=== PATIENT | male | born 1960 | race Caucasian/White ===

== ENCOUNTER 2022-11-23 13:29 | Emergency (ER) | payer OTHER, SELFPAY ==
--- NOTE | ~2022-11-23 | CT_ITS ---
EXAMINATION: CT abdomen pelvis wo con DATE: 11/23/2022 16:32 INDICATION: Left flank pain. Hematuria. TECHNIQUE: Computed tomography (CT) of the abdomen and pelvis was performed without intravenous contr ast. Automated exposure control and iterative reconstruction technique were employed. The dose-length product was 412.04 mGy-cm. COMPARISON: None. FINDINGS: The visualized portions of the lung bases demonstrate mild atelectasis. No pleural effusion . The heart size is normal. No pericardial effusion. The liver and spleen are normal. The gallbladder is distended, likely secondary to fasting. The pancreas and adrenal glands are normal. There are 9 s tones in right kidney measuring up to 5 mm. There are 10 stones in left kidney measuring up to 5 mm. There is mild left hydronephrosis and hydroureter. There is a 5 mm stone in distal left ureter. The p rostate is mildly enlarged. There are bilateral inguinal hernias containing fat. There is diverticulo sis of the colon without evidence of diverticulitis. There are no dilated loops of bowel. The appendi x is normal. There are no pathologically enlarged lymph nodes. There is no free intraperitoneal fluid . There is severe lower lumbar spondylosis. There are hemangiomas in L2, T12, and T7 vertebral bodies . IMPRESSION: 1. 5 mm stone in distal left ureter with mild left hydronephrosis and hydroureter. 2. Bilateral nonobstructing kidney stones. Reviewed, dictated and finalized at location L. IMPRESSION: 1. 5 mm stone in distal left ureter with mild left hydronephrosis and hydrouret er. 2. Bilateral nonobstructing kidney stones.
[2022-11-23 14:05] VITALS: BP 148/85; PULSE 60; RESP 16; TEMP 36.7; O2SAT 100
[2022-11-23 15:14] LABS: Basophils Percent Auto 0.4 % (0.2-1.2); Eosinophils Absolute Auto 0.2 K/mm3 (0-0.3); Eosinophils Percent Auto 2.4 % (0-4.4); Hematocrit 39.7 % (42.0-52.0); Hemoglobin 13.4 g/dL (14.0-18.0); Immature Granulocyte Absolute 0.04 K/mm3 (0.00-0.031); Immature Granulocyte Percent A 0.4 % (0-0.5); Lymphocytes Percent Auto 10.1 % (18.3-44.2); Mean Corpuscular HGB Conc 33.8 g/dl (32-36); Mean Corpuscular Hemoglobin 32.7 pg (26-34); Mean Corpuscular Volume 96.8 fl (80-100); Mean Platelet Volume 9.9 fl (7.4-10.4); Monocytes Absolute Auto 0.9 K/mm3 (0.1-0.6); Monocytes Percent Auto 9.6 % (2.6-8.5); Neutrophils Absolute Auto 6.9 K/mm3 (1.3-6.7); Neutrophils Percent Auto 77.1 % (45.5-73.1); Platelet Count Result 193 k/mm3 (150-375); Red Cell Distribution Width 13.2 % (11.5-14.5); White Blood Count 8.9 K/mm3 (4.5-10.0)
[2022-11-23 15:27] LABS: Appearance Urine Clear (Clear); Bacteria Urine None Seen /hpf; Bilirubin Urine Negative (Negative); Blood Urine 2+ (Negative); Color Urine Yellow (Yellow); Glucose Urine UA Negative (Negative); Ketones Urine Negative (Negative); Leukocyte Esterase Ur Negative LEU/UL (Negative); Nitrate Urine Negative (Negative); Non Pathogenic Casts 0-2; Protein Urine Negative (Negative); RBC Urine 0-2 /hpf (0-2); Specific Grav Ur 1.007 (1.001-1.035); Squamous Epithelial Cell Urine None seen /hpf (Few); Urobilinogen Urine 0.2 mg/dL (<2.0); WBC Urine 0-5 /hpf; pH Urine 5.5 (5.0-9.0)
[2022-11-23 15:28] LABS: Alanine Aminotransferase 33 U/L (6-50); Albumin Level 4.3 g/dL (3.5-5.1); Alkaline Phosphatase 58 U/L (38-126); Anion Gap 7 mmol/L (8-16); Aspartate Amino Transferase 34 U/L (17-59); Bilirubin,Total 1.4 mg/dL (0.2-1.3); Blood Urea Nitrogen 17 mg/dL (9-20); Calcium 8.5 mg/dL (8.4-10.2); Carbon Dioxide 27 mmol/L (22-30); Chloride 103 mmol/L (98-107); Estimated CRCL calculation 63 ml/min; Estimated Glomerular Filt Rate > 60; Glucose 91 mg/dL (65-110); Lipase 77 U/L (23-300); Potassium 3.7 mmol/L (3.4-5.0); Sodium 137 mmol/L (137-145)
[2022-11-23 15:35] LABS: Add Urine Microscopic? YES
[2022-11-23] MEDS: ONDANSETRON INJ 4 MG/2 ML VIAL IV PUSH (16:26)
[2022-11-23] MEDS: HYDROmorphone HCL INJ (*CRX) 1 MG/ML SYR IV PUSH (16:26)
--- NOTE | 2022-11-23 16:27 | ED.GENADULT ---
HPI - General Adult General Chief complaint: Abdominal Pain Stated complaint: left flank pain Time Seen by Provider: 11/23/22 15:42 History of Present Illness HPI narrative: 62-year-old male presented the emergency department for evaluation of left flank pain. Patient does have a history of ureteral calculi. Patient states that approximately 5 years ago he did have to have a stent placed by Dr. Hernandez. Patient has passed a stone since then. Patient began having pain on Tuesday, around 10 to 11 AM. Patient reports that the pain did come back this morning at approximately 8 AM. Patient did have some nausea without vomiting. Patient has not noticed any blood in his urine. Patient has been increasing his water intake. Related Data Home Medications Medication Instructions Recorded Confirmed azathioprine 100 mg tablet 75 mg PO DAILY 04/12/22 04/12/22 tamsulosin 0.4 mg capsule 0.4 mg PO DAILY 04/12/22 04/12/22 Allergies Allergy/AdvReac Type Severity Reaction Status Date / Time No Known Allergies Allergy Verified 11/23/22 15:38 Review of Systems Review of Systems: All systems reviewed & are unremarkable except as noted in HPI and below PMFSH Past Medical History Medical History (Updated 11/23/22 @ 17:51 by Mihir Coley MD) Nephrolithiasis (2016) Surgical History Surgical History (Updated 04/08/22 @ 12:59 by Nallely Loyola) S/P rotator cuff repair Social History Social History Smoking status: Never smoker Exam Narrative: APPEARANCE: Well appearing, no pain, no distress, well-nourished. HEAD: normocephalic, atraumatic. EYES: PERRLA/EOMI, conjunctivae clear. NOSE: Normal no drainage NECK: Supple. No adenopathy, no masses. RESPIRATORY: Airway patent, respirations nonlabored. Clear to auscultation bilaterally, no rales, rhonchi, wheezing. CARDIOVASCULAR: Regular rate and rhythm without murmurs rubs or gallops. ABDOMINAL: Some left CVA tenderness to palpation MUSCULOSKELETAL: Moves all extremities. Strength/ROM intact, No edema, No calf tenderness. NEURO: Alert. Cranial nerves II through XII intact. Grossly intact SKIN: Warm, dry. Normal Color Course Course Emergency Course: External male presented to ED for evaluation of left flank pain. Patient did request medication for pain control and patient was treated with IV Dilaudid and medications for nausea control. CT scan to evaluate for ureteral calculi and was also ordered. Patient was updated on the plan for imaging. All questions concerns were addressed. Patient did feel improved with treatment. Patient is afebrile with no leukocytosis. Patient UA showed hematuria but no evidence of infection. CT scan did show a 5 mm stone in the distal left ureter. Patient was updated on the results of the work-up. Patient will be given follow-up with Dr. Hernandez. Patient was started on Flomax in the emergency department. Patient will be provided medications for nausea and for pain control. Vital Signs Vital signs: Vital Signs Temperature 98.1 F 11/23/22 14:05 Pulse Rate 60 11/23/22 14:05 Respiratory Rate 16 11/23/22 14:05 Blood Pressure 148/85 H 11/23/22 14:05 Pulse Oximetry 100 11/23/22 14:05 Oxygen Delivery Room Air 11/23/22 14:05 Temperature 98.1 F 11/23/22 14:05 Pulse Rate 60 11/23/22 14:05 Respiratory Rate 16 11/23/22 14:05 Blood Pressure 148/85 H 11/23/22 14:05 Pulse Oximetry 100 11/23/22 14:05 Oxygen Delivery Room Air 11/23/22 14:05 Medical Decision Making Differential Diagnosis Differential Diagnosis: Ureteral calculi, musculoskeletal injury, urinary tract infection, colitis, diverticulitis Vital Signs Vital Signs: Vital Signs Temperature 98.1 F 11/23/22 14:05 Pulse Rate 60 11/23/22 14:05 Respiratory Rate 16 11/23/22 14:05 Blood Pressure 148/85 H 11/23/22 14:05 Pulse Oximetry 100 11/23/22 14:05 Oxygen Delivery Room Air 11/23/22 14:05 Temperature 98.1 F
== END 2022-11-23 18:10 | disposition home or self-care (01) ==
PROVIDERS: Emergency Provider Emergency Medicine; PCP Family Medicine Adolescent Medicine
DX: N13.2 Hydronephrosis with renal and ureteral calculous obstruction (principal); Z87.442 Personal history of urinary calculi
CPT/HCPCS: 36415; 74176; 80053; 81001; 83690; 85025; 96374; 96375; 99284; J1170; J2405

== ENCOUNTER 2024-06-04 11:33 | Outpatient (CLI) | payer OTHER, SELFPAY ==
--- NOTE | ~2024-06-04 | CT_ITS ---
EXAMINATION: CT abdomen pelvis w con DATE: 06/04/2024 12:09 INDICATION: Right lower quadrant abdominal pain TECHNIQUE: Computed tomography (CT) of the abdomen and pelvis was performed with 100 mL Omnipaque-350 intravenous contrast. Automated exposure control and iterative reconstruction technique were employe d. The dose-length product was 500.99 mGy-cm. COMPARISON: None FINDINGS: Lung bases are clear. Heart size is normal. No pericardial or pleural effusion. Small sliding-type hi atal hernia. Liver, gallbladder, spleen, pancreas, bilateral adrenal glands and kidneys are normal. T he fluid-filled appendix is dilated to 1.6 cm with prominent surrounding inflammatory stranding consi stent with acute appendicitis. Small high attenuation gallstones are seen within the dilated portion of the appendix. There is prominent likely secondary reactive wall thickening at the ileocecal valve. Small amount of fluid at the inferior aspect of the bilateral paracolic gutters, unclear whether int raperitoneal or more likely retroperitoneal no free fluid seen deep in the pelvis. No abscess or free intraperitoneal gas. Remainder of the bowels are unremarkable with no obstruction. Bladder is normal . Prostatomegaly. Small bilateral fat-containing inguinal hernias. IMPRESSION: 1. Acute appendicitis. Dr. Avitia discussed these findings with Dr. Muñoz at 12:15 PM. Reviewed, dictated and finalized at location A. STONE POLISHER IMPRESSION: 1. Acute appendicitis. Dr. Avitia discussed these findings with Dr. Muñoz at 12 :15 PM.
[2024-06-04 12:03] LABS: Estimated Glomerular Filt Rate > 60
== END 2024-06-04 11:34 | disposition home or self-care (01) ==
PROVIDERS: PCP Family Medicine Adolescent Medicine; Visit Provider Family Medicine
DX: K35.80 Unspecified acute appendicitis (principal)
CPT/HCPCS: 74177; Q9967

== ENCOUNTER 2024-06-04 12:32 | Observation (INO) | payer OTHER, SELFPAY ==
[2024-06-04] VITALS (12 sets, daily range): BP systolic 121–159; BP diastolic 42–84; PULSE 71–94; RESP 12–18; TEMP 36.3–37.4; O2SAT 93–100
[2024-06-04] MEDS: metroNIDAZOLE 500 MG/ISO 100ML 500 MG/100 ML BAG 100 MG IVPB ×2 (13:00→22:08)
[2024-06-04] MEDS: MORPHINE SULFATE (*CRX) 4 MG/ML INJ IV PUSH (13:00)
[2024-06-04 13:22] LABS: Basophils Percent Auto 0.2 % (0.2-1.2); Eosinophils Absolute Auto 0.1 K/mm3 (0-0.3); Eosinophils Percent Auto 1.2 % (0-4.4); Hematocrit 39.6 % (42.0-52.0); Hemoglobin 13.3 g/dL (14.0-18.0); Immature Granulocyte Absolute 0.03 K/mm3 (0.00-0.031); Immature Granulocyte Percent A 0.3 % (0-0.5); Lymphocytes Percent Auto 7.6 % (18.3-44.2); Mean Corpuscular HGB Conc 33.6 g/dl (32-36); Mean Corpuscular Hemoglobin 32.8 pg (26-34); Mean Corpuscular Volume 97.8 fl (80-100); Mean Platelet Volume 10.2 fl (7.4-10.4); Monocytes Absolute Auto 0.8 K/mm3 (0.1-0.6); Monocytes Percent Auto 9.1 % (2.6-8.5); Neutrophils Absolute Auto 7.6 K/mm3 (1.3-6.7); Neutrophils Percent Auto 81.6 % (45.5-73.1); Platelet Count Result 208 k/mm3 (150-375); Red Blood Count 4.05 M/mm3 (4.6-6.20); Red Cell Distribution Width 13.2 % (11.5-14.5); White Blood Count 9.3 K/mm3 (4.5-10.0)
--- NOTE | 2024-06-04 13:29 | ED.GENADULT ---
HPI - General Adult General Chief complaint: Abdominal Pain Stated complaint: + CT scan for appendicitis Time Seen by Provider: 06/04/24 12:43 History of Present Illness HPI narrative: Patient is a 64-year-old male who presents to the ER with pain in the right lower quadrant. Pain started 3 days ago in the epigastrium and has moved to the right lower quadrant. He initially thought it was a kidney stone which he has passed previously. No fevers or chills. He has lost his appetite. Last oral intake was coffee at 5:00 a.m.. Last solid food yesterday. Pain is worse with movement and with eating. Better with rest. Outpatient CT scan today showed appendicitis, these images have been reviewed may agree with the interpretation. Related Data Home Medications Medication Instructions Recorded Confirmed azathioprine 100 mg tablet 50 mg PO DAILY 04/13/23 06/04/24 Allergies Allergy/AdvReac Type Severity Reaction Status Date / Time No Known Allergies Allergy Verified 06/04/24 09:48 Review of Systems Review of Systems: All systems reviewed & are unremarkable except as noted in HPI and below Constitutional: Constitutional: Reports no additional constitutional complaints ENT: Reports system reviewed and no additional complaints, except as documented Cardiovascular: Cardiovascular: Reports no additional cardiovascular complaints Respiratory: Respiratory: Reports no additional respiratory complaints Gastrointestinal: Gastrointestinal: Reports abdominal pain, Reports constipation, Denies diarrhea, Denies nausea and Denies vomiting PMFSH Past Medical History Medical History (Updated 06/04/24 @ 13:33 by Sean Klein MD) Nephrolithiasis (2015) Surgical History Surgical History (Updated 04/13/23 @ 06:18 by Silvano Silva MD) History of colonoscopy (2020) S/P rotator cuff repair Social History Social History Smoking status: Never smoker Exam Narrative: GENERAL: Well-appearing, well-nourished, and in no acute distress. HEAD: Normocephalic, atraumatic. ENT: Mucous membranes moist. CHEST: Clear to auscultation. No respiratory distress. HEART: Regular rate and rhythm. Normal peripheral pulses. ABDOMEN: Soft, tender to palpation right lower quadrant with guarding, nondistended. EXTREMITIES: Normal range of motion. No edema. SKIN: Warm, dry, no rash. NEURO: Alert and oriented x3. PSYCH: Normal mood and affect. Course Course Emergency Course: Discussed with surgery, will take to the OR. Patient receiving ceftriaxone/metronidazole. Vital Signs Vital signs: Vital Signs Temperature 97.3 F L 06/04/24 12:37 Pulse Rate 87 06/04/24 12:37 Respiratory Rate 14 06/04/24 12:37 Blood Pressure 153/79 H 06/04/24 12:37 Pulse Oximetry 100 06/04/24 12:37 Temperature 97.3 F L 06/04/24 12:37 Pulse Rate 87 06/04/24 12:37 Respiratory Rate 14 06/04/24 12:37 Blood Pressure 153/79 H 06/04/24 12:37 Pulse Oximetry 100 06/04/24 12:37 Medical Decision Making Vital Signs Vital Signs: Vital Signs Temperature 97.3 F L 06/04/24 12:37 Pulse Rate 87 06/04/24 12:37 Respiratory Rate 14 06/04/24 12:37 Blood Pressure 153/79 H 06/04/24 12:37 Pulse Oximetry 100 06/04/24 12:37 Temperature 97.3 F L 06/04/24 12:37 Pulse Rate 87 06/04/24 12:37 Respiratory Rate 14 06/04/24 12:37 Blood Pressure 153/79 H 06/04/24 12:37 Pulse Oximetry 100 06/04/24 12:37 Lab Data 06/04/24 13:10 06/04/24 13:10 Labs: Lab Results 06/04/24 06/04/24 Range/Units 13:10 13:11 WBC 9.3 (4.5-10.0) K/mm3 RBC 4.05 L (4.6-6.20) M/mm3 Hgb 13.3 L (14.0-18.0) g/dL Hct 39.6 L (42.0-52.0) % MCV 97.8 (80-100) fl MCH 32.8 (26-34) pg MCHC 33.6 (32-36) g/dl RDW 13.2 (11.5-14.5) % Plt Count 208 (150-375) k/mm3 MPV 10.2 (7.4-10.4) fl Immature Gran % (Auto) 0.3 (0-0.5) % Neut % (Auto) 81.6 H (45.5-73.1) % Lymph % (Auto) 7.6 L (18.3-44.2) % [place] % (Auto) 9.1 H (2.6-8.5) % Eos % (Auto) 1.2 (0-4.4) % Baso % (Auto) 0.2 (0.2-1.2) % Lymph # (Auto) 0.70 L (0.9-3.2) K/mm3 [place] # (Auto) 0.8 H (0.1-0.6) K/mm3 Eos # (Auto) 0.1 (0-0.3) K/mm3 Baso # (Auto) 0.0 (0.0-0.1) K/mm3 Abs Immat Gran (auto) 0.03 (0.00-0.031) K/mm3 Absolute Neuts (auto) 7.6 H (1.3-6.7) K/mm3 Absolute Nucleated RBC 0.000 (0.0-0.012) K/mm3 Nucleated RBC % 0.0 (0.0-0.2) % Sodium 135 L (137-145) mmol/L Potassium 3.9 (3.4-5.0) mmol/L Chloride 102 (98-107) mmol/L Carbon Dioxide 27 (22-30) mmol/L Anion Gap 6 (4-12) mmol/L BUN 13 (9-20) mg/dL Creatinine 0.90 (0.7-1.3) mg/dL Estim Creat Clear Calc 70 ml/min Estimated GFR > 60 (59 - ) Glucose 96 (65-110) mg/dL Lactic Acid 1.1 (0.7-2.0) mmol/L Calcium 8.7 (8.4-10.2) mg/dL Total Bilirubin 1.7 H (0.2-1.3) mg/dL AST 24 (17-59) U/L ALT 27 (6-50) U/L Alkaline Phosphatase 72 (38-126) U/L Total Protein 7.0 (6.3-8.2) g/dL Albumin 4.1 (3.5-5.1) g/dL Lipase 58 (23-300) U/L Discharge Plan Discharge Clinical Impression: Acute appendicitis Patient Disposition: Still a Patient Condition: Stable Instructions: Antibiotic Form Prescriptions: No Action azathioprine 100 mg tablet 50 mg PO DAILY pantoprazole 40 mg tablet,delayed release (DR/EC) 40 mg PO DAILY Qty: 30 0RF sildenafil 100 mg tablet 100 mg PO DAILY PRN (Reason: sexual activity) Qty: 6 10RF losartan 50 mg tablet See Rx Instructions .ROUTE .COMPLEX Qty: 90 0RF Dose Instruction: TAKE 1 TABLET DAILY Rx Instructions: TAKE 1 TABLET DAILY Follow-up/Referrals: Silvano Silva MD [Primary Care Provider] -
[2024-06-04 13:35] LABS: Lactic Acid Reflex 1.1 mmol/L (0.7-2.0)
[2024-06-04 13:36] LABS: Alanine Aminotransferase 27 U/L (6-50); Albumin Level 4.1 g/dL (3.5-5.1); Alkaline Phosphatase 72 U/L (38-126); Anion Gap 6 mmol/L (4-12); Aspartate Amino Transferase 24 U/L (17-59); Bilirubin,Total 1.7 mg/dL (0.2-1.3); Blood Urea Nitrogen 13 mg/dL (9-20); Calcium 8.7 mg/dL (8.4-10.2); Carbon Dioxide 27 mmol/L (22-30); Chloride 102 mmol/L (98-107); Estimated CRCL calculation 70 ml/min; Estimated Glomerular Filt Rate > 60; Glucose 96 mg/dL (65-110); Lipase 58 U/L (23-300); Potassium 3.9 mmol/L (3.4-5.0); Sodium 135 mmol/L (137-145)
[2024-06-04 13:58] LABS: Add Urine Microscopic? NO; Appearance Urine Clear (Clear); Bilirubin Urine Negative (Negative); Blood Urine Negative (Negative); Color Urine Yellow (Yellow); Glucose Urine UA Negative (Negative); Ketones Urine Negative (Negative); Leukocyte Esterase Ur Negative LEU/UL (Negative); Nitrate Urine Negative (Negative); Protein Urine Negative (Negative); Specific Grav Ur > 1.045 (1.001-1.035); Urobilinogen Urine 0.2 mg/dL (<2.0)
--- NOTE | 2024-06-04 14:14 | P.HP_ITS ---
H&P: HPI History of Present Illness Date/Time: 06/04/24 14:14 Chief Complaint: Right lower quadrant abdominal pain Narrative: This is a 64-year-old man with PMH of autoimmune hepatitis on Imuran, hypertension, and BPH, who presented to the ED today after having an outpatient CT scan that showed acute appendicitis. He reports waking up around 1:00 a.m. on Tuesday, 3 days ago, with diffuse generalized cramping abdominal pain. His pain localized to the lower abdomen, more in the right lower quadrant, over the following day. Pain was aggravated by movement, bending, and he also felt to was aggravated by eating. No nausea, vomiting, diarrhea, fever, chills, or other complaints. He went to his PCP today for evaluation, who ordered an outpatient CT scan of the abdomen and pelvis. This showed acute appendicitis. No CT evidence of perforation or abscess. He was then directed to the ED for further evaluation. Labs showed a white blood cell count of 9000. He is now seen in the ED for surgical evaluation. Review of Systems Review of Systems: All systems reviewed & are unremarkable except as noted in HPI and below PMFSH Past Medical History Medical History Autoimmune hepatitis Benign prostatic hyperplasia with lower urinary tract symptoms Essential (primary) hypertension Nephrolithiasis (2015) Surgical History Surgical History History of colonoscopy (2020) History of hemorrhoidectomy History of inguinal hernia repair at age 3 S/P rotator cuff repair Social History Social History Smoking status: Never smoker Alcohol intake: never Substance use: never Meds Home Medications and Allergies Home Medications Medication Instructions Recorded Confirmed Type azathioprine 100 mg tablet 50 mg PO DAILY 04/13/23 06/04/24 History losartan 50 mg tablet See Rx Instructions .Route 05/28/24 06/04/24 Rx .COMPLEX #90 tabs pantoprazole 40 mg tablet,delayed 40 mg PO DAILY #30 tabs 06/01/24 06/04/24 Rx release sildenafil 100 mg tablet 100 mg PO DAILY PRN sexual 06/01/24 06/04/24 Rx activity #6 tabs Allergies Allergy/AdvReac Type Severity Reaction Status Date / Time No Known Allergies Allergy Verified 06/04/24 09:48 Vital Signs Vital Signs - 24 hr 06/04/24 12:37 Temperature 97.3 F L Pulse Rate 87 Respiratory Rate 14 Blood Pressure 153/79 H Pulse Oximetry 100 Exam Const: General: comfortable and no acute distress Nutritional Appearance: average body habitus Orientation/consciousness: patient oriented x3 HENMT: Head: normocephalic and atraumatic Ears: hearing grossly normal bilaterally Mouth: Yes moist mucous membranes Eyes: General: appearance normal, both eyes and all related structures Pupils: Equal, round and reactive pupils present Neck: Neck: normal visual inspection and full ROM Resp: Effort & Inspection: no respiratory distress Auscultation: clear to auscultation bilaterally Cardio: Rate: regular rate Rhythm: regular rhythm Heart sounds: S1 normal heart sound present and S2 normal heart sound present Peripheral pulses: Peripheral pulses 2+ throughout GI: Inspection: non-distended and no visible herniation GI Palp: Yes Soft to palpation, Yes Tenderness to palpation present (GI) (RLQ, referred pain in RLQ with palpation of LLQ), Yes Guarding due to palpation present (GI) (RLQ), Yes No hepatosplenomegaly present and No Rebound tenderness present Percussion: Yes normal to percussion Auscultation: normal bowel sounds Skin: General skin exam: normal color Neuro: General: moves all extremities and no focal motor deficits Speech: normal speech Motor exam (neuro): 5/5 motor strength present throughout Extrem: General: normal to inspection and no edema Psych: Mental Status: mental status grossly normal Attitude: cooperative Insight: Good insight present (Psych) Judgement: Good judgement present (Psych) H&P: Results Labs Labs: Short CBC 06/04/24 Range/Units 13:10 WBC 9.3 (4.5-10.0) K/mm3 Hgb 13.3 L (14.0-18.0) g/dL Hct 39.6 L (42.0-52.0) % Plt Count 208 (150-375) k/mm3 BMP 06/04/24 13:10 Sodium 135 L Potassium 3.9 Chloride 102 Carbon Dioxide 27 BUN 13 Creatinine 0.90 Glucose 96 Calcium 8.7 Liver Function 06/04/24 Range/Units 13:10 Total Bilirubin 1.7 H (0.2-1.3) mg/dL AST 24 (17-59) U/L ALT 27 (6-50) U/L Alkaline Phosphatase 72 (38-126) U/L Albumin 4.1 (3.5-5.1) g/dL Urine 06/04/24 Range/Units 13:52 Urine Color Yellow (Yellow) Urine Appearance Clear (Clear) Urine pH 6.0 (5.0-9.0) Ur Specific [place] > 1.045 H (1.001-1.035) Urine Protein Negative (Negative) mg/dL Urine Glucose (UA) Negative (Negative) mg/dL Assessment and Plan Assessment and plan (1) Acute appendicitis: Qualifiers: Acute appendicitis type: unspecified acute appendicitis type Qualified Code(s): K35.80 - Unspecified acute appendicitis Code(s): K35.80 - Unspecified acute appendicitis Status: Acute Assessment and Plan: CT evidence of acute appendicitis with appendicolith. No CT evidence of perforation or abscess. We discussed nonoperative and surgical treatment options in detail. We discussed the details of a laparoscopic appendectomy, possible open, under general anesthesia that would be done by Dr. Bowen. Description of the procedure, risks, benefits, alternatives, and expected recovery were discussed. He wishes to proceed with surgery. He received IV antibiotics in the ER. Will keep him NPO with IV fluids pre-operatively and proceed to the OR for urgent appendectomy today. (2) Autoimmune hepatitis: Code(s): K75.4 - Autoimmune hepatitis Status: Chronic Assessment and Plan: Patient followed by [facility] and recently seen in February when his azathioprine was titrated down. He has reportedly been on this medication for 20 years for autoimmune hepatitis. 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 Recommended calling his Communications Supervisor on discharge to notify him of his treatment for appendicitis and recommendations in regards to his AI hepatitis treatment. I discussed the risks of findings of perforation intraoperatively and how this would change his course of treatment. Plan I have discussed the patient's case and plan of care with Dr. Bowen.
--- NOTE | 2024-06-04 14:32 | WPDHPUPDATE1 ---
History and Physical Update Update Date/Time: 06/04/24 14:32 History and Physical has been reviewed, including an updated exam of the patient. There are NO changes in the patient's condition. Risks, benefits, and alternatives have been discussed and questions answered. Patient agrees to proceed with procedure.
--- NOTE | 2024-06-04 14:43 | WPDANESEPPF ---
Anes - Initial Pre Proc Eval Procedure: Operation Date: 06/04/24 15:30 Proposed Procedures p Laparoscopic Appendectomy - Saige Bowen MD Date/Time: 06/04/24 14:43 Surgeon: Saige Bowen MD Pre Op Diagnosis: + CT scan for appendicitis Patient Data Age: 64 Gender: M Height: 1.7 m Weight: 77 kg Last Vital Signs Temp 36.3 C L 06/04/24 12:37 Pulse 71 06/04/24 14:27 Resp 12 06/04/24 14:27 BP 129/70 06/04/24 14:27 Pulse Ox 100 06/04/24 14:27 Allergies Allergy/AdvReac Type Severity Reaction Status Date / Time No Known Allergies Allergy Verified 06/04/24 09:48 Home Medications Medication Instructions Recorded Confirmed Type azathioprine 100 mg tablet 50 mg PO DAILY 04/13/23 06/04/24 History losartan 50 mg tablet See Rx Instructions .Route 05/28/24 06/04/24 Rx .COMPLEX #90 tabs pantoprazole 40 mg tablet,delayed 40 mg PO DAILY #30 tabs 06/01/24 06/04/24 Rx release sildenafil 100 mg tablet 100 mg PO DAILY PRN sexual 06/01/24 06/04/24 Rx activity #6 tabs Laboratory Tests 06/04/24 06/04/24 06/04/24 13:10 13:11 13:52 WBC 9.3 K/mm3 (4.5-10.0) RBC 4.05 L M/mm3 (4.6-6.20) Hgb 13.3 L g/dL (14.0-18.0) Hct 39.6 L % (42.0-52.0) MCV 97.8 fl (80-100) MCH 32.8 pg (26-34) MCHC 33.6 g/dl (32-36) RDW 13.2 % (11.5-14.5) Plt Count 208 k/mm3 (150-375) MPV 10.2 fl (7.4-10.4) Immature Gran % (Auto) 0.3 % (0-0.5) Neut % (Auto) 81.6 H % (45.5-73.1) Lymph % (Auto) 7.6 L % (18.3-44.2) [place] % (Auto) 9.1 H % (2.6-8.5) Eos % (Auto) 1.2 % (0-4.4) Baso % (Auto) 0.2 % (0.2-1.2) Lymph # (Auto) 0.70 L K/mm3 (0.9-3.2) [place] # (Auto) 0.8 H K/mm3 (0.1-0.6) Eos # (Auto) 0.1 K/mm3 (0-0.3) Baso # (Auto) 0.0 K/mm3 (0.0-0.1) Abs Immat Gran (auto) 0.03 K/mm3 (0.00-0.031) Absolute Neuts (auto) 7.6 H K/mm3 (1.3-6.7) Absolute Nucleated RBC 0.000 K/mm3 (0.0-0.012) Nucleated RBC % 0.0 % (0.0-0.2) Sodium 135 L mmol/L (137-145) Potassium 3.9 mmol/L (3.4-5.0) Chloride 102 mmol/L (98-107) Carbon Dioxide 27 mmol/L (22-30) Anion Gap 6 mmol/L (4-12) BUN 13 mg/dL (9-20) Creatinine 0.90 mg/dL (0.7-1.3) Estim Creat Clear Calc 70 ml/min Estimated GFR > 60 (59 - ) Glucose 96 mg/dL (65-110) Lactic Acid 1.1 mmol/L (0.7-2.0) Calcium 8.7 mg/dL (8.4-10.2) Total Bilirubin 1.7 H mg/dL (0.2-1.3) AST 24 U/L (17-59) ALT 27 U/L (6-50) Alkaline Phosphatase 72 U/L (38-126) Total Protein 7.0 g/dL (6.3-8.2) Albumin 4.1 g/dL (3.5-5.1) Lipase 58 U/L (23-300) Urine Color Yellow (Yellow) Urine Appearance Clear (Clear) Urine pH 6.0 (5.0-9.0) Ur Specific [place] > 1.045 H (1.001-1.035) Urine Protein Negative mg/dL (Negative) Urine Glucose (UA) Negative mg/dL (Negative) Urine Ketones Negative mg/dL (Negative) Ur Blood (Man) Negative (Negative) Urine Nitrate Negative (Negative) Urine Bilirubin Negative (Negative) Urine Urobilinogen 0.2 mg/dL (<2.0) Leukocyte Esterase Rfl Negative MATT/UL (Negative) Patient hx anesthesia problems: none Family hx anesthesia problems: none Results Review: All pre-operative results and documents have been reviewed as part of the pre-operative evaluation. [facility] Past Medical History Medical History Autoimmune hepatitis Benign prostatic hyperplasia with lower urinary tract symptoms Essential (primary) hypertension Nephrolithiasis (2015) Surgical History Surgical History History of colonoscopy (2020) History of hemorrhoidectomy History of inguinal hernia repair at age 3 S/P rotator cuff repair Social History Social History Smoking status: Never smoker Alcohol intake: never Substance use: never Anes - Eval Final PreProcedure Day of Procedure 06/04/24 14:43 Patient weight: overweight Heart: regular rate and rhythm Lungs: clear to auscultation Airway: Mallampati scale class II Neurological: alert and oriented Last oral intake: >/= 8 hours ASA classification: III Emergent: yes Anesthetic plan: proceed Anesthesia type and monitoring: general ETT and standard monitoring Results Review: All pre-operative results and documents have been reviewed as part of the pre-operative evaluation. Informed Consent: The patient's anesthetic plan and its attendant risks and benefits were discussed with the patient/family/POA. Questions were solicited and answers provided to the satisfaction of the patient/family/POA.
[2024-06-04] MEDS: BUPIVACAINE/EPINEPHRINE 0.5% 50 ML VIAL 30 ML INFILTRATE (15:43)
[2024-06-04] MEDS: LACTATED RINGERS 1,000 ML 30 ML IV CONT ×2 (16:24)
--- NOTE | 2024-06-04 16:27 | P.OP_ITS ---
Procedure Note - Detailed Date of Procedure 06/04/24 Pre-op Diagnosis acute appendicitis Post-op Diagnosis Other ( acute perforated appendicitis) Procedure Performed laparoscopic appendectomy with extensive lysis of adhesions, drainage of intra- abdominal abscess Surgeon Saige Bowen MD Anesthesia General and Local Indications 64-year-old male presenting to the emergency department complaining of lower abdominal pain. Workup consistent with acute appendicitis Findings acute perforated appendicitis at the base of the appendix with surrounding abscess Description of Procedure The patient was taken to the operating room and placed in the supine position. After adequate induction of general anesthesia, the patient was prepped and draped in the normal sterile fashion. A time-out was then done to verify the patient's identity, as well as the procedure being performed. I began by making a 5 mm incision in the infraumbilical region, through this a Veress needle was placed in the peritoneal cavity. CO2 gas was then insufflated and after adequate pneumoperitoneum was achieved the Veress needle was removed. Then placed a 5 mm Optiview trocar under direct visualization into the peritoneal cavity. I then insufflated through this trocar site and the endoscope was placed into the trocar. Under direct visualization, placed 2 further 5 mm suprapubic port as well as an additional 12 mm port in the left lower abdomen. At this point identified the cecum, I retracted the cecum both medially and superiorly allowing me to expose the appendix. The appendix was noted to be very dilated and inflamed especially at the base. There was also noted to be a surrounding abscess overlying the appendix and the ileum. I was able to suction away and wash out this abscess. The appendix was noted to be very adherent to the right lateral sidewall as well as the ileum. I was able to bluntly dissect the appendix from these adhesions. I then was able to locate the base of the appendix with the cecum. At this point there was noted to be a perforation near the base of the appendix. I created a window with the [place] dissector between the appendix itself and the mesoappendix. I then transected the mesoappendix with a white vascular staple load. The Endo-ARJUN was then reloaded with a blue staple load and I transected the base of the appendix. Once the specimen was completely detached, an endo-pouch was placed into the 12 mm port site and the specimen was removed through the endo-pouch. The appendiceal specimen will be sent to pathology for further review. I then copiously irrigated the right lower quadrant. Hemostasis was noted at both staple lines no other pathology was seen in this area. Given the perforation near the base as well as the abscess, the decision was made to place a KAROL drain in the right lower quadrant. This drain was placed into the right lower quadrant and it was pulled from the 5 mm suprapubic site. No iatrogenic or other pathology was noted in the upper abdomen. I then closed the 12 mm port site with a Josh code and 0 Vicryl suture under direct visualization. At this point, the abdomen was desufflated and all ports were removed. All port sites were closed with 4 Monocryl subcuticular suture. Dermabond was placed on all wounds. The patient tolerated the procedure well and was extubated in the operating room postop. He will be sent to the recovery room in stable condition. Estimated Blood Loss 10 Drains Yes Packing No Pathology Yes Complications No immediate complications Condition Stable Disposition PACU [facility] Billing Surgery - Charge Forward: Surgery Billing
[2024-06-04] MEDS: fentaNYL CITRATE INJ (*CRX) 100 MCG/2 ML VIAL 25 MCG IV PUSH ×4 (16:49→17:00)
[2024-06-04] MEDS: HYDROcodone/acetaminophen (*CRX) 5-325 MG TABLET 1 TAB PO ×2 (18:19→22:09)
[2024-06-04] MEDS: LACTATED RINGERS 1,000 ML 100 ML IV CONT (18:21)
[2024-06-05] MEDS: HYDROmorphone HCL INJ (*CRX) 1 MG/ML SYR IV PUSH ×3 (00:17→15:45)
[2024-06-05 01:20] VITALS: BP 128/77; PULSE 88; RESP 16; TEMP 36.8; O2SAT 95
[2024-06-05] MEDS: HYDROcodone/acetaminophen (*CRX) 5-325 MG TABLET 1 TAB PO ×3 (02:40→21:14)
[2024-06-05 05:16] VITALS: BP 137/81; PULSE 81; RESP 18; TEMP 35.9; O2SAT 97
[2024-06-05 07:20] LABS: Hemoglobin 14.2 g/dL (14.0-18.0); Mean Corpuscular Hemoglobin 32.6 pg (26-34); Mean Corpuscular Volume 98.9 fl (80-100); Mean Platelet Volume 10.1 fl (7.4-10.4); Platelet Count Result 232 k/mm3 (150-375); Red Blood Count 4.35 M/mm3 (4.6-6.20); Red Cell Distribution Width 13.2 % (11.5-14.5); White Blood Count 9.5 K/mm3 (4.5-10.0)
[2024-06-05 07:51] LABS: Anion Gap 4 mmol/L (4-12); Blood Urea Nitrogen 14 mg/dL (9-20); Calcium 8.9 mg/dL (8.4-10.2); Carbon Dioxide 29 mmol/L (22-30); Chloride 102 mmol/L (98-107); Estimated CRCL calculation 70 ml/min; Estimated Glomerular Filt Rate > 60; Glucose 141 mg/dL (65-110); Potassium 4.3 mmol/L (3.4-5.0); Sodium 135 mmol/L (137-145)
[2024-06-05] MEDS: PANTOPRAZOLE 40 MG TABLET PO (08:40)
[2024-06-05] MEDS: ENOXAPARIN 40 MG/0.4 ML SYRINGE SUB-Q (08:40)
[2024-06-05] MEDS: metroNIDAZOLE 500 MG/ISO 100ML 500 MG/100 ML BAG 100 MG IVPB ×3 (08:41→21:10)
--- NOTE | 2024-06-05 13:37 | P.PNGS_ITS ---
Progress Note: A&P Assessment and Plan (1) Acute perforated appendicitis: Code(s): K35.32 - Acute appendicitis with perforation, localized peritonitis, and gangrene, without abscess Status: Acute Assessment and Plan: * POD1 following lap appy * He is having nausea and bloating today, no vomiting. May be developing an ileus. Encouraged him to walk the halls. May need to back off his diet if not improving. * Continue IV antibiotics. 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 Bowen. Subjective Subjective Date/Time Seen: 06/05/24 13:37 Post Op day: 1 (Laparoscopic appendectomy) Patient reports: voiding w/o difficulty, no flatus, no bowel movement and nausea Interval history: Patient reporting nausea, bloating, and belching. He is feeling full quickly and has no appetite. He has had only minimal oral intake today. Also reports dark urine, but no difficulties with urination. BUN and creatinine normal. he is currently on 2 liters O2 as well but nursing said they took him off of this earlier today as his O2 saturation was stable. They will try to wean off O2 again. I also asked nursing to get IS at the bedside and educate patient. He has been ambulating in the halls multiple times today and tolerated this well. He reports this helps with his bloating. he has taken about 6 laps. Exam Const: General: comfortable and no acute distress Orientation/consciousness: patient oriented x3 Resp: Effort & Inspection: normal respiratory effort Auscultation: clear to auscultation bilaterally Cardio: Rate: regular rate Rhythm: regular rhythm GI: Inspection: non-distended, incision (incisions dry and intact) and other (KAROL drain with cloudy serosanguineous drainage) GI Palp: Yes Soft to palpation, Yes Tenderness to palpation present (GI) (diffusely tender with more focal TTP in the RLQ), Yes Guarding due to palpation present (GI) (RLQ) and Yes Rebound tenderness present Auscultation: Hypoactive bowel sounds present Neuro: General: moves all extremities and no focal motor deficits Extrem: General: no calf tenderness and no edema Psych: Mental Status: mental status grossly normal Insight: Good insight present (Psych) Objective Data Vital Signs Vital Signs: Vital Signs - 24 hr 06/04/24 14:27 06/04/24 14:40 06/04/24 16:24 Temperature 98.8 F 97.9 F Pulse Rate 71 75 80 Respiratory Rate 12 18 12 Blood Pressure 129/70 148/84 H 148/76 H Pulse Oximetry 100 93 100 Oxygen Delivery Room Air Simple Face Mask Oxygen Flow Rate 8 06/04/24 16:35 06/04/24 16:50 06/04/24 17:00 Temperature Pulse Rate 77 74 Respiratory Rate 14 14 Blood Pressure 159/72 H 156/84 H Pulse Oximetry 100 100 Oxygen Delivery Simple Face Mask Simple Face Mask Room Air Oxygen Flow Rate 8 8 06/04/24 17:05 06/04/24 17:20 06/04/24 17:35 Temperature 97.8 F Pulse Rate 84 79 78 Respiratory Rate 12 18 18 Blood Pressure 144/77 H 148/76 H 156/81 H Pulse Oximetry 99 99 100 Oxygen Delivery Nasal Cannula Simple Face Mask Nasal Cannula Oxygen Flow Rate 2 8 2 06/04/24 18:04 06/04/24 20:00 06/04/24 22:04 Temperature 98.1 F 99.3 F Pulse Rate 86 86 94 Respiratory Rate 18 18 18 Blood Pressure 121/42 L 152/84 H Pulse Oximetry 100 100 95 Oxygen Delivery Nasal Cannula Oxygen Flow Rate 2 06/05/24 01:20 06/05/24 05:16 06/05/24 08:00 Temperature 98.2 F 96.6 F L Pulse Rate 88 81 Respiratory Rate 16 18 Blood Pressure 128/77 137/81 Pulse Oximetry 95 97 Oxygen Delivery Room Air Oxygen Flow Rate Intake/Output Intake/Output: Intake & Output 06/02/24 06/03/24 06/04/24 06/05/24 23:59 23:59 23:59 23:59 Intake Total 400 1050 Output Total 30 1210 Balance 370 -160 Meds/Results Medications: Active Medications Generic Name Dose Route Start Last Admin Trade Name Freq PRN Reason Stop Dose Admin Acetaminophen 500 mg 06/04/24 16:19 Acetaminophen 500 Mg Tablet PO Q6H PRN Pain Rated 1-3 Hydrocodone Bitart/Acetaminophen 1 tab 06/04/24 16:19 06/05/24 12:42 Hydrocodone/Acetaminophen (*Crx) 5-325 Mg Tablet PO 1 tab Q4H PRN Administration Pain Rated 4-6 Enoxaparin Sodium 40 mg 06/05/24 09:00 06/05/24 08:40 Enoxaparin 40 Mg/0.4 Ml Syringe SUB-Q 40 mg DAILY ERNESTO Administration Hydromorphone HCl 1 mg 06/04/24 16:19 06/05/24 08:45 Hydromorphone Hcl Inj (*Crx) 1 Mg/Ml Syr IV PUSH 1 mg Q2H PRN Administration Breakthrough Pain Rated 7-10 or NPO Hydromorphone HCl 0.5 mg 06/04/24 16:19 Hydromorphone Hcl Inj (*Crx) 1 Mg/Ml Syr IV PUSH Q2H PRN Breakthrough Pain Rated 4-6 or NPO Lactated Ringer's 1,000 mls @ 100 mls/hr 06/04/24 16:20 06/04/24 18:21 Lr - Lactated Ringers Iv IV CONT 100 mls/hr .Q10H ERNESTO Administration Ceftriaxone Sodium 1 gm in 50 mls @ 100 mls/hr 06/05/24 12:00 06/05/24 12:35 Rocephin 1 Gm/Ns 50 Ml IVPB 100 mls/hr Q24H ERNESTO Administration Metronidazole 500 mg in 100 mls @ 100 mls/hr 06/04/24 22:00 06/05/24 08:41 Flagyl 500 Mg/Iso Soln 100 Ml IVPB 100 mls/hr Q8H ERNESTO Administration Naloxone HCl 0.1 mg 06/04/24 16:19 Naloxone Hcl 0.4 Mg/Ml Vial IV PUSH Q2M PRN Opiate Reversal Ondansetron HCl 4 mg 06/04/24 16:19 Ondansetron Inj 4 Mg/2 Ml Vial IV PUSH Q4H PRN Nausea And Vomiting Pantoprazole Sodium 40 mg 06/05/24 09:00 06/05/24 08:40 Pantoprazole 40 Mg Tablet PO 40 mg QAM ERNESTO Administration Labs Labs: Laboratory Results - last 24 hr 06/04/24 06/05/24 13:52 06:50 WBC 9.5 RBC 4.35 L Hgb 14.2 Hct 43.0 MCV 98.9 MCH 32.6 MCHC 33.0 RDW 13.2 Plt Count 232 MPV 10.1 Sodium 135 L Potassium 4.3 Chloride 102 Carbon Dioxide 29 Anion Gap 4 BUN 14 Creatinine 0.90 Estim Creat Clear Calc 70 Estimated GFR > 60 Glucose 141 H Calcium 8.9 Urine Color Yellow Urine Appearance Clear Urine pH 6.0 Ur Specific [place] > 1.045 H Urine Protein Negative Urine Glucose (UA) Negative Urine Ketones Negative Ur Blood (Man) Negative Urine Nitrate Negative Urine Bilirubin Negative Urine Urobilinogen 0.2 Leukocyte Esterase Rfl Negative
[2024-06-05] MEDS: ONDANSETRON INJ 4 MG/2 ML VIAL IV PUSH (13:46)
[2024-06-05 14:04] VITALS: BP 134/63; PULSE 82; RESP 18; TEMP 36.4; O2SAT 93
[2024-06-05] MEDS: LACTATED RINGERS 1,000 ML 100 ML IV CONT (17:12)
[2024-06-05 21:00] VITALS: BP 117/69; PULSE 80; RESP 20; TEMP 36.7; O2SAT 93
[2024-06-06] MEDS: LACTATED RINGERS 1,000 ML 100 ML IV CONT (04:17)
[2024-06-06 05:20] VITALS: BP 132/65; PULSE 79; RESP 18; TEMP 36.1; O2SAT 92
[2024-06-06] MEDS: metroNIDAZOLE 500 MG/ISO 100ML 500 MG/100 ML BAG 100 MG IVPB (05:33)
[2024-06-06 06:22] LABS: Hematocrit 37.2 % (42.0-52.0); Hemoglobin 12.4 g/dL (14.0-18.0); Mean Corpuscular HGB Conc 33.3 g/dl (32-36); Mean Corpuscular Hemoglobin 32.8 pg (26-34); Mean Corpuscular Volume 98.4 fl (80-100); Mean Platelet Volume 9.8 fl (7.4-10.4); Platelet Count Result 167 k/mm3 (150-375); Red Blood Count 3.78 M/mm3 (4.6-6.20); Red Cell Distribution Width 13.2 % (11.5-14.5); White Blood Count 6.8 K/mm3 (4.5-10.0)
[2024-06-06 06:37] LABS: Anion Gap 2 mmol/L (4-12); Blood Urea Nitrogen 13 mg/dL (9-20); Calcium 8.3 mg/dL (8.4-10.2); Carbon Dioxide 30 mmol/L (22-30); Chloride 102 mmol/L (98-107); Estimated CRCL calculation 70 ml/min; Estimated Glomerular Filt Rate > 60; Glucose 113 mg/dL (65-110); Sodium 134 mmol/L (137-145)
[2024-06-06] MEDS: PANTOPRAZOLE 40 MG TABLET PO (09:05)
[2024-06-06] MEDS: ENOXAPARIN 40 MG/0.4 ML SYRINGE SUB-Q (09:05)
[2024-06-06] MEDS: HYDROcodone/acetaminophen (*CRX) 5-325 MG TABLET 1 TAB PO (11:23)
--- NOTE | 2024-06-06 13:21 | PM.DS ---
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 Follow-up with PCP as scheduled DS: Summary Hospital Course Reason for hospitalization: This is a 64-year-old man with PMH of autoimmune hepatitis on Imuran, hypertension, and BPH, who presented to the ED after having an outpatient CT scan that showed acute appendicitis. He was experiencing abdominal pain for 3 days, and presented to his PCP for evaluation. They ordered an outpatient CT scan and directed him to the ED for evaluation once the CT showed acute appendicitis. Hospital Course: He was initially taken for outpatient surgery and underwent laparoscopic appendectomy by Dr. Bowen on 06/04/2024. He was found to have perforated appendicitis. KAROL drain was placed during surgery. Labs were monitored routinely postop and remained stable. His white blood cell count was normal before and after surgery. He was afebrile. His diet was slowly advanced, but he had some nausea and bloating postop day 1. He was unable to tolerate his diet due to the nausea and bloating postop day 1. He was primarily taking in only clear liquids as tolerated. He remained on IV fluids for hydration and monitored overnight. IV antibiotics were continued postoperatively. His KAROL drain also showed some cloudy purulent-appearing fluid postop. This was monitored and he was discharged with the KAROL drain. By postop day 2, his nausea and bloating and improved after starting to pass flatus. No BM yet, but he felt significantly better. He was afebrile and white blood cell count remained normal. He was stable for discharge by postop day 2 on oral antibiotics. Status at Discharge Functional status at discharge: independent ambulation Overall status at discharge: patient is progressing back to baseline Time Spent with Patient Time attestation: Total time spent providing and/or coordinating discharge services: Exam Const: General: comfortable and no acute distress GI: Inspection: non-distended, incision (incisions dry and intact) and other (KAROL drain with cloudy purulent appearing serosanguineous drainage) GI Palp: Yes Soft to palpation, Yes Tenderness to palpation present (GI) (incisional and RLQ, but improved in the RLQ) and No Guarding due to palpation present (GI) Auscultation: normal bowel sounds Neuro: General: moves all extremities and no focal motor deficits Extrem: General: no calf tenderness and no edema Psych: Mental Status: mental status grossly normal Insight: Good insight present (Psych) DS: Data Data Completed and Pending Completed studies during hospitalization: Pending at discharge 06/04/24 15:20 Surgical [PTH] Routine Labs on day of discharge: Labs from last 24 hours 06/06/24 06:09 WBC 6.8 RBC 3.78 L Hgb 12.4 L Hct 37.2 L MCV 98.4 MCH 32.8 MCHC 33.3 RDW 13.2 Plt Count 167 MPV 9.8 Sodium 134 L Potassium 4.0 Chloride 102 Carbon Dioxide 30 Anion Gap 2 L BUN 13 Creatinine 0.90 Estim Creat Clear Calc 70 Estimated GFR > 60 Glucose 113 H Calcium 8.3 L Procedures/Treatments: Procedures Operation Date: 06/04/24 15:30 Actual Procedure Side Surgeon p Laparoscopic Appendectomy Not Applicable Saige Bowen MD Discharge Plan Discharge Attending physician on discharge: Saige Bowen Consulting providers: Coby Acevedo; Pako Ferreira; Ivan Avitia Discharging Clinician: Coby Acevedo Anticipated Discharge Date/Time: 06/06/24 13:22 Patient Disposition: Home, Self-Care Activity: other - see discharge instructions Diet: as tolerated and regular Wound Care Instructions: incision open to air and other - see discharge instructions Discharge Instructions: DISCHARGE INSTRUCTION SHEET FOR HERNIA, GALLBLADDER AND APPENDIX SURGERIES DR. BOWEN 1. Okay to wash over incisions with mild soap and water. Keep KAROL drain site dry until it was removed. Empty and record KAROL drain output daily. Bring the record of the output to your office visit with the surgeon. May change the gauze dressing as needed if soiled. 2. Call office for: Wound increasingly painful or bleeding Vomiting Fever of greater than 101 degrees 3. If no bowel movement for three days, take 1 oz. (30 ml) Milk of Magnesia or MiraLax 17g 1 to 2 times daily. 4. No heavy lifting > 10-15 pounds x 2 weeks for laparoscopic cholecystectomy or appendectomy. 5. No driving until KAROL drain is removed or while taking narcotic pain medications. 6. Up walking 10-30 minutes three times per day. 7. Our office will schedule you for a follow-up with Dr. Bowen next Tuesday. We will call you with the time and date of appointment once it is scheduled. If you have any questions before then, please call.. [phone]) 8. Oral pain medications prescription were sent electronically to the pharmacy. Take Tylenol 500mg every 6 hours and Ibuprofen 600mg every 6 hours for the first 2 days, then as needed. 9. 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 Patient Instructions: Antibiotic Form Patient Language: German Stand Alone Forms: General Discharge Information Follow-up/Referrals: Saige Bowen MD [Physician] - 06/12/24 Silvano Silva MD [Primary Care Provider] - Discharge Medications: New hydrocodone-acetaminophen 5-325 mg Tablet 1 tablet PO Q6H PRN (Reason: Pain Rated 4-6) Qty: 20 0RF amoxicillin-pot clavulanate 875-125 mg tablet 1 tablet PO Q12H Qty: 14 0RF metronidazole 500 mg tablet 500 mg PO Q8H 7 Days Qty: 21 0RF Continued pantoprazole 40 mg tablet,delayed release (DR/EC) 40 mg PO DAILY Qty: 30 0RF losartan 50 mg tablet See Rx Instructions .ROUTE .COMPLEX Qty: 90 0RF Dose Instruction: TAKE 1 TABLET DAILY Rx Instructions: TAKE 1 TABLET DAILY Held azathioprine 100 mg tablet 50 mg PO DAILY Hold Instructions: Resume on 06/12/24. Hold this medication until either the surgeon or your Ethylene Plant Helper instructs you to resume this. Call your Ethylene Plant Helper about your ruptured appendicitis to find out when they would recommend resuming this medication. Date of admission: 06/04/24 16:19 Primary Care Provider: Silvano Silva Admitting Provider: Saige Bowen Attending physician on admission: Saige Bowen Condition: Stable Quality VTE Prophylaxis VTE prophylaxis: mechanical ordered and pharmacologic ordered
== END 2024-06-06 14:50 | disposition home or self-care (01) ==
LOC: ANHED 13:37 → ANHSURGERY 13:46 → ANH3MEDSUR 18:26
PROVIDERS: Nurse Practitioner Family; Admitting Provider Surgery; Emergency Provider Emergency Medicine; PCP Family Medicine Adolescent Medicine; Visit Provider Surgery
PROC: 0DTJ4ZZ Resection of Appendix, Percutaneous Endoscopic Approach (ICD-10-PCS; CPT 44970; principal; 2024-06-04 15:30)
DX: K35.33 Acute appendicitis with perforation, localized peritonitis, and gangrene, with abscess (principal); K38.8 Other specified diseases of appendix; K75.4 Autoimmune hepatitis; I10 Essential (primary) hypertension; N40.0 Benign prostatic hyperplasia without lower urinary tract symptoms; D84.821 Immunodeficiency due to drugs; Z79.899 Other long term (current) drug therapy; Z87.442 Personal history of urinary calculi
CPT/HCPCS: 44970; 36415; 74177; 80048; 80053; 81003; 83605; 83690; 85025; 85027; 88304; 96365; 96367; 96375; 99285; A9270; G0378; J0696; J1100; J1171; J1650; J1836; J2003; J2250; J2270; J2405; J2704; J3010; J7030; J7120; Q9967